=== PATIENT | male | born 1955 | race Caucasian/White ===

== ENCOUNTER 2022-01-24 13:43 | Outpatient (CLI) | payer MEDICARE, BC | END 2022-01-24 13:44 | disposition home or self-care (01) | LOC: CSHLAB 13:43 | PROVIDERS: ATTEND Specialist | DX: Z20.822 Contact with and (suspected) exposure to COVID-19 (principal) | CPT/HCPCS: 87811 ==

== ENCOUNTER 2022-01-29 09:33 | Outpatient (CLI) | payer MEDICARE, BC | END 2022-01-29 09:34 | disposition home or self-care (01) | LOC: CSHRAD 09:33 | PROVIDERS: ATTEND Specialist | DX: R13.10 Dysphagia, unspecified (principal) | CPT/HCPCS: 74220 ==

== ENCOUNTER 2025-06-22 09:57 | Outpatient (CLI) | payer MEDICARE, BC ==
[2025-06-22 10:48] LABS: Hematocrit 33.7 % (38.8-50.0); Hemoglobin 11.2 g/dL (13.5-17.5)
[2025-06-22 11:02] LABS: Anion Gap 12 mmol/L (10-20); BUN (Urea Nitrogen) 29 mg/dL (8.4-25.7); Calc. Creatinine Clearance 0 mL/min (70-130); Calcium 11.2 mg/dL (7.8-10.44); Carbon Dioxide 23 mmol/L (23-31); Chloride 109 mmol/L (98-107); Glucose 103 mg/dL (83-110); Potassium 4.5 mmol/L (3.5-5.1); Sodium 139 mmol/L (136-145)
== END 2025-06-22 09:58 | disposition home or self-care (01) ==
LOC: CSHLAB 09:57
PROVIDERS: ATTEND Otolaryngology Otolaryngic Allergy
DX: Z01.812 Encounter for preprocedural laboratory examination (principal); E21.3 Hyperparathyroidism, unspecified
CPT/HCPCS: 80048; 85014; 85018